=== PATIENT | female | born 1985 | race Caucasian/White ===

== ENCOUNTER 2022-04-26 20:23 | Emergency (ER) | payer OTHER ==
[~2022-04-26] VITALS: Ht 172.7 cm; Wt 63.6 kg
[2022-04-26 20:34] VITALS: TEMP 99
[2022-04-26] MEDS ORDERED: ZOFRAN ODT4 MG PO (22:10)
[2022-04-26 22:21] VITALS: BP 107/68; PULSE 96
== END 2022-04-26 22:23 | disposition home or self-care (01) ==
LOC: COL.ER 20:23
DX: U07.1 COVID-19 (principal); F17.290 Nicotine dependence, other tobacco product, uncomplicated; Z28.310 Unvaccinated for COVID-19
CPT/HCPCS: J1885; J2405